=== PATIENT | male | born 1950 | race Hispanic/Latino ===

== ENCOUNTER 2019-04-30 18:11 | Emergency (ER) | payer MEDICARE, MEDICAID ==
[2019-04-30] MEDS ORDERED: methylPREDNISolone Sod Succ/PF 125 MG/2 ML VIAL ONE (18:30)
[2019-04-30 18:42] LABS: #Eosinphils 0.2 thou/uL (0.0-0.7); #Lymphocytes 1.8 thou/uL (1.20-3.40); #Monocytes 0.6 thou/uL (0.11-0.59); #Neutrophils 3.2 thou/uL (1.40-6.50); %Basophils 0.3 % (0.0-1.0); %Eosinophils 4.2 % (0.0-10.0); %Lymphocytes 31.2 % (21.0-51.0); %Monocytes 9.7 % (0.0-10.0); %Neutrophils 54.5 % (42.0-75.0); Hemoglobin 13.8 g/dL (14.0-18.0); Mean Corpuscular Hemoglobin 30.4 pg (27.0-31.0); Mean Corpuscular Volume 92.1 fL (78.0-98.0); Mean Platelet Volume 8.3 fL (7.4-10.4); Platelet Count 166 thou/uL (130-400); RBC Distribution Width 11.9 % (11.5-14.5); Red Blood Cell (RBC) Count 4.53 mill/uL (4.70-6.10); White Blood Cell (WBC) Count 5.8 thou/uL (4.8-10.8)
[2019-04-30 19:06] LABS: ALT (SGPT) 14 U/L (8-55); AST (SGOT) 13 U/L (5-34); Albumin 3.9 g/dL (3.4-4.8); Alkaline Phosphatase 79 U/L (40-110); Anion Gap 9 mmol/L (10-20); BUN (Urea Nitrogen) 13 mg/dL (8.4-25.7); Bilirubin, Total 0.7 mg/dL (0.2-1.2); Calc. Creatinine Clearance 0 mL/min (70-130); Calcium 8.8 mg/dL (7.8-10.44); Carbon Dioxide 28 mmol/L (23-31); Chloride 102 mmol/L (98-107); Estimated GFR-MDRD Greater than 90; Globulin 3.4 g/dL (2.4-3.5); Glucose 128 mg/dL (80-115); Potassium 3.4 mmol/L (3.5-5.1); Protein, Total 7.3 g/dL (5.8-8.1); Sodium 136 mmol/L (136-145)
--- NOTE | 2019-04-30 20:40 | RAD ---
PORTABLE AP CHEST X-RAY: 04/30/19 HISTORY: Dyspnea and wheezing. The patient states he has been sick for a couple of days. COMPARISON: 11/07/16. FINDINGS: There is elevation of the right hemidiaphragm, but there also appears to be pleural and parenchymal c hanges of the right lung base which may be related to associated small right pleural effusion and ate lectasis. Superimposed infiltrate right lung base cannot be entirely excluded. The left lung is clear . Right cardiac border is obscured. Pulmonary vasculature is within normal limits. No other interval change. IMPRESSION: 1. Elevation right hemidiaphragm with increased density right lung base probably attributable to atelectasis and possibly a small right pleural effusion. However, pneumonia at the right lung base c ould not be entirely excluded. Follow-up evaluation is recommended if clinically indicated. 2. Left lung is clear. POS: [facility]
[2019-04-30] MEDS ORDERED: Azithromycin 250 MG TAB ONE (21:57)
== END 2019-04-30 22:35 | disposition home or self-care (01) ==
LOC: ERS 18:11
DX: J98.01 Acute bronchospasm (principal); I25.2 Old myocardial infarction; G47.30 Sleep apnea, unspecified; E11.9 Type 2 diabetes mellitus without complications; E66.9 Obesity, unspecified; I10 Essential (primary) hypertension; Z79.899 Other long term (current) drug therapy; Z86.718 Personal history of other venous thrombosis and embolism; Z79.51 Long term (current) use of inhaled steroids
CPT/HCPCS: 36415; 71045; 80053; 83880; 85025; 93005; 96374; J2930

== ENCOUNTER 2020-12-13 21:12 | Inpatient (IN) | payer MEDICARE, MEDICAID ==
[2020-12-13] MEDS ORDERED: Vancomycin 1 GM/200 ML BAG ONE (21:33)
[2020-12-13] MEDS ORDERED: Cefepime 2 GM VIAL ONE (21:33)
[2020-12-13 21:44] LABS: Hemoglobin 12.2 g/dL (14.0-18.0); Mean Corpuscular Volume 93.4 fL (78.0-98.0); Mean Platelet Volume 9.5 fL (7.4-10.4); Platelet Count 128 thou/uL (130-400); RBC Distribution Width 12.5 % (11.5-14.5); Red Blood Cell (RBC) Count 4.21 mill/uL (4.70-6.10); White Blood Cell (WBC) Count 18.8 thou/uL (4.8-10.8)
[2020-12-13] MEDS ORDERED: Norepinephrine 8 MG/0.9% NS 250 ML ONE (21:49)
[2020-12-13 21:55] LABS: Bacteria/HPF 4+ HPF (None Seen); Bilirubin Negative (Negative); Blood, Urine 2+ (Negative); Clarity Extra Turbid (Clear); Glucose, Urine (Dipstick) Normal (Negative); Ketone, Urine Negative (Negative); Leukocyte 500 Leu/uL (Negative); Nitrite Negative (Negative); Protein, Urine (Dipstick) 200 mg/dL (Neg-Trace); RBC/HPF 21-50 HPF (0-3); Squamous Epithelial None Seen HPF (0-3); Urobilinogen Normal mg/dL (Less than 2); WBC/HPF Greater than 50 HPF (0-3)
[2020-12-13 22:27] LABS: ALT (SGPT) 14 U/L (8-55); AST (SGOT) 27 U/L (5-34); Alkaline Phosphatase 60 U/L (40-110); Anion Gap 20 mmol/L (10-20); BUN (Urea Nitrogen) 60 mg/dL (8.4-25.7); Band 1 % (5-11); Bilirubin, Total 1.6 mg/dL (0.2-1.2); CK (CPK) 172 U/L (30-200); Calc. Creatinine Clearance 0 mL/min (70-130); Calcium 6.9 mg/dL (7.8-10.44); Carbon Dioxide 27 mmol/L (23-31); Chloride 98 mmol/L (98-107); Globulin 3.6 g/dL (2.4-3.5); Glucose 139 mg/dL (83-110); Hypochromia SLIGHT = 6-15 cells (100X) (0-5/hpf); Lipase 15 U/L (8-78); Lymphocytes 2 % (21-51); MDiff Complete? YES; Monocytes 20 % (0-10); Neutrophil 77 % (42-75); Platelet Morphology Comment Appears Adequate; Potassium 2.8 mmol/L (3.5-5.1); Protein, Total 6.6 g/dL (5.8-8.1); Sodium 142 mmol/L (136-145)
[2020-12-13 23:10] LABS: CKMB 1.2 ng/mL (0-6.6)
[2020-12-13] MEDS ORDERED: Potassium Chloride 20 MEQ/100 ML PREMIX BAG ONE (23:20)
[2020-12-13] MEDS ORDERED: Potassium Chloride 40 MEQ in Premix Bag 1 BAG IVPB SCH (23:45)
[2020-12-14] MEDS ORDERED: Ondansetron ODT 4 MG TAB SL PRN (00:45)
[2020-12-14] MEDS ORDERED: Ondansetron PF 4 MG/2 ML Vial IVP PRN ×2 (00:45→01:34)
[2020-12-14 00:46] LABS: SARS-CoV-2 NAA Rapid Test Not Detected (NotDetected)
[2020-12-14 01:05] LABS: Lactic Acid 2.2 mmol/L (0.5-2.2)
[2020-12-14 01:28] LABS: Troponin I 0.243 ng/mL (< 0.028)
[2020-12-14] MEDS ORDERED: HumaLOG 300 UNITS/3 ML VIAL SC PRN (01:36)
[2020-12-14] MEDS ORDERED: Dextrose 5% in Water 1,000 ML IV PRN (01:36)
[2020-12-14] MEDS ORDERED: Dextrose 50% Abboject 50 ML SYRINGE SLOW IVP PRN (01:36)
[2020-12-14] MEDS: Sodium Chloride 0.9% 1,000 ML IV SCH ×2 (03:34→14:43)
[2020-12-14] MEDS ORDERED: Bacteriostatic Water 30 ML VIAL FS PRN (03:45)
[2020-12-14] MEDS ORDERED: Fleet Enema 133 ML BOT PR SCH (03:45)
[2020-12-14] MEDS ORDERED: methylPREDNISolone Sod Succ 40 MG VIAL IVP SCH (03:45)
[2020-12-14] MEDS ORDERED: methylPREDNISolone Sod Succ 40 MG VIAL ONE ×2 (04:18→21:17)
[2020-12-14] MEDS ORDERED: Norepinephrine 8 MG/0.9% NS 250 ML IVPB SCH (05:15)
[2020-12-14] MEDS ORDERED: Vancomycin HCl 750 MG in Sodium Chloride 0.9% 250 ML 250 ML IVPB SCH (05:30)
[2020-12-14 06:46] LABS: Troponin I 0.225 ng/mL (< 0.028)
[2020-12-14 06:46] LABS: ALT (SGPT) 21 U/L (8-55); AST (SGOT) 36 U/L (5-34); Albumin 2.9 g/dL (3.4-4.8); Alkaline Phosphatase 65 U/L (40-110); Anion Gap 19 mmol/L (10-20); BUN (Urea Nitrogen) 60 mg/dL (8.4-25.7); Bilirubin, Total 1.6 mg/dL (0.2-1.2); Calc. Creatinine Clearance 33 mL/min (70-130); Calcium 6.7 mg/dL (7.8-10.44); Carbon Dioxide 26 mmol/L (23-31); Chloride 103 mmol/L (98-107); Globulin 3.6 g/dL (2.4-3.5); Glucose 124 mg/dL (83-110); Magnesium 1.2 mg/dL (1.6-2.6); Potassium 3.2 mmol/L (3.5-5.1); Protein, Total 6.5 g/dL (5.8-8.1); Sodium 145 mmol/L (136-145)
[2020-12-14] MEDS ORDERED: Polyethylene Glycol 3350 17 GM Packet PO SCH (09:00)
[2020-12-14] MEDS ORDERED: Famotidine 20 MG TAB ONE (09:13)
[2020-12-14] MEDS ORDERED: Enoxaparin Sodium 30 MG/0.3 ML SYRINGE ONE (09:13)
[2020-12-14] MEDS: Enoxaparin Sodium 30 MG/0.3 ML SYRINGE SC SCH (09:27)
[2020-12-14] MEDS: Famotidine 20 MG TAB PO SCH (09:28)
[2020-12-14 11:21] LABS: Hemoglobin 13.1 g/dL (14.0-18.0); Mean Corpuscular HGB CONC 33.6 g/dL (32.0-36.0); Mean Corpuscular Hemoglobin 31.3 pg (27.0-31.0); Mean Corpuscular Volume 93.3 fL (78.0-98.0); Mean Platelet Volume 9.6 fL (7.4-10.4); Platelet Count 129 thou/uL (130-400); RBC Distribution Width 12.5 % (11.5-14.5); Red Blood Cell (RBC) Count 4.19 mill/uL (4.70-6.10); White Blood Cell (WBC) Count 23.1 thou/uL (4.8-10.8)
[2020-12-14 11:36] LABS: ALT (SGPT) 19 U/L (8-55); AST (SGOT) 28 U/L (5-34); Alkaline Phosphatase 62 U/L (40-110); Anion Gap 19 mmol/L (10-20); BUN (Urea Nitrogen) 56 mg/dL (8.4-25.7); Bilirubin, Total 1.5 mg/dL (0.2-1.2); Calc. Creatinine Clearance 36 mL/min (70-130); Calcium 7.3 mg/dL (7.8-10.44); Carbon Dioxide 27 mmol/L (23-31); Chloride 102 mmol/L (98-107); Globulin 3.7 g/dL (2.4-3.5); Glucose 149 mg/dL (83-110); Protein, Total 6.7 g/dL (5.8-8.1); Sodium 145 mmol/L (136-145)
[2020-12-14 11:39] LABS: Band 9 % (5-11); Lymphocytes 5 % (21-51); MDiff Complete? YES; Monocytes 2 % (0-10); Neutrophil 83 % (42-75); Platelet Morphology Comment Appears Decreased; RBC Morphology Normal; Reactive Lymphocytes 1 % (0-10)
[2020-12-14 11:49] LABS: Potassium 2.6 mmol/L (3.5-5.1)
[2020-12-14] MEDS ORDERED: Electrolyte Replacement Protocol 1 EACH FS SCH (13:15)
[2020-12-14] MEDS: methylPREDNISolone Sod Succ 40 MG VIAL IVP SCH ×2 (13:18→21:38)
[2020-12-14] MEDS ORDERED: Potassium Chloride 20 MEQ/100 ML PREMIX BAG ONE (15:26)
[2020-12-14] MEDS ORDERED: Potassium Chloride 20 MEQ TAB PO SCH (15:30)
[2020-12-14] MEDS ORDERED: Magnesium Sulfate 4 GM in Sodium Chloride 0.9% 250 ML 250 ML IVPB SCH (15:30)
[2020-12-14] MEDS ORDERED: Potassium Chloride 40 MEQ in Premix Bag 1 BAG IVPB SCH ×2 (15:45→17:45)
[2020-12-14] MEDS ORDERED: Cefepime 2 GM VIAL ONE (22:31)
[2020-12-14 22:56] LABS: Potassium 2.9 mmol/L (3.5-5.1)
[2020-12-14] MEDS ORDERED: Cefepime 2 GM in Sodium Chloride 0.9% 100 ML IVPB SCH (23:00)
[2020-12-14 23:59] LABS: Magnesium 2.1 mg/dL (1.6-2.6)
[2020-12-15] MEDS ORDERED: Potassium Chloride 20 MEQ/100 ML PREMIX BAG ONE (00:20)
[2020-12-15] MEDS ORDERED: Potassium Chloride 20 MEQ in Premix Bag 1 BAG IVPB SCH (00:30)
[2020-12-15] MEDS: Sodium Chloride 0.9% 1,000 ML IV SCH ×2 (05:23→17:21)
[2020-12-15] MEDS: methylPREDNISolone Sod Succ 40 MG VIAL IVP SCH ×3 (05:24→20:51)
[2020-12-15] MEDS ORDERED: Vancomycin 1 GM in Premix Bag 1 BAG IVPB SCH (05:30)
[2020-12-15 05:51] LABS: Hemoglobin 11.2 g/dL (14.0-18.0); Mean Corpuscular HGB CONC 33.1 g/dL (32.0-36.0); Mean Corpuscular Volume 93.8 fL (78.0-98.0); Mean Platelet Volume 9.5 fL (7.4-10.4); Platelet Count 124 thou/uL (130-400); RBC Distribution Width 12.6 % (11.5-14.5); Red Blood Cell (RBC) Count 3.61 mill/uL (4.70-6.10); White Blood Cell (WBC) Count 15.3 thou/uL (4.8-10.8)
[2020-12-15 05:58] LABS: ALT (SGPT) 18 U/L (8-55); AST (SGOT) 24 U/L (5-34); Albumin 2.7 g/dL (3.4-4.8); Alkaline Phosphatase 51 U/L (40-110); Anion Gap 18 mmol/L (10-20); BUN (Urea Nitrogen) 54 mg/dL (8.4-25.7); Bilirubin, Total 1.1 mg/dL (0.2-1.2); Calc. Creatinine Clearance 49 mL/min (70-130); Calcium 7.3 mg/dL (7.8-10.44); Carbon Dioxide 26 mmol/L (23-31); Chloride 106 mmol/L (98-107); Globulin 3.1 g/dL (2.4-3.5); Glucose 182 mg/dL (83-110); Magnesium 1.9 mg/dL (1.6-2.6); Protein, Total 5.8 g/dL (5.8-8.1); Sodium 147 mmol/L (136-145)
[2020-12-15 06:05] LABS: Potassium 2.7 mmol/L (3.5-5.1)
[2020-12-15 06:07] LABS: Band 10 % (5-11); Lymphocytes 4 % (21-51); MDiff Complete? YES; Monocytes 4 % (0-10); Neutrophil 82 % (42-75); Platelet Morphology Comment Appears Decreased
[2020-12-15] MEDS ORDERED: Magnesium 2 GM/50 ML 2 GM in Premix Bag 1 BAG IVPB SCH (06:30)
[2020-12-15] MEDS: Potassium Chloride 40 MEQ in Premix Bag 1 BAG IVPB SCH ×2 (06:49→10:14)
[2020-12-15] MEDS: HumaLOG 300 UNITS/3 ML VIAL SC PRN ×3 (07:02→16:55)
[2020-12-15] MEDS ORDERED: Polyethylene Glycol 3350 17 GM Packet PO PRN (08:30)
[2020-12-15] MEDS: Famotidine 20 MG TAB PO SCH (09:15)
[2020-12-15] MEDS: Enoxaparin Sodium 30 MG/0.3 ML SYRINGE SC SCH (09:15)
[2020-12-15 15:53] LABS: Potassium 3.3 mmol/L (3.5-5.1)
[2020-12-15] MEDS: Cefepime 2 GM in Sodium Chloride 0.9% 100 ML IVPB SCH (20:49)
[2020-12-16 04:56] LABS: ALT (SGPT) 17 U/L (8-55); AST (SGOT) 21 U/L (5-34); Albumin 2.6 g/dL (3.4-4.8); Alkaline Phosphatase 52 U/L (40-110); Anion Gap 10 mmol/L (10-20); BUN (Urea Nitrogen) 46 mg/dL (8.4-25.7); Bilirubin, Total 0.8 mg/dL (0.2-1.2); Calc. Creatinine Clearance 59 mL/min (70-130); Calcium 7.5 mg/dL (7.8-10.44); Carbon Dioxide 30 mmol/L (23-31); Chloride 103 mmol/L (98-107); Glucose 189 mg/dL (83-110); Magnesium 2.1 mg/dL (1.6-2.6); Protein, Total 5.6 g/dL (5.8-8.1); Sodium 140 mmol/L (136-145)
[2020-12-16] MEDS ORDERED: Potassium Chloride 40 MEQ in Premix Bag 1 BAG IVPB SCH (05:00)
[2020-12-16] MEDS: HumaLOG 300 UNITS/3 ML VIAL SC PRN ×2 (07:12→17:41)
[2020-12-16] MEDS: Sodium Chloride 0.9% 1,000 ML IV SCH ×2 (07:14→21:35)
[2020-12-16 07:19] VITALS: BMI 31.1
[2020-12-16] MEDS ORDERED: Melatonin 3 MG TAB PO PRN (07:30)
[2020-12-16] MEDS ORDERED: Ondansetron ODT 4 MG TAB PO PRN (07:30)
[2020-12-16] MEDS ORDERED: Calcium Carbonate 500 MG ChewTAB PO PRN (07:30)
[2020-12-16] MEDS ORDERED: Bisacodyl 5 MG TAB PO PRN (07:30)
[2020-12-16] MEDS ORDERED: Sodium Chloride 0.65% Nasal 44 ML BOT EA NARE PRN (07:30)
[2020-12-16] MEDS ORDERED: Cepastat Lozenges 1 LOZ PO PRN (07:30)
[2020-12-16] MEDS ORDERED: Hydrocerin (Eucerin) Cream 120 gm Jar TOP PRN (07:30)
[2020-12-16] MEDS ORDERED: Loperamide HCl 2 MG CAP PO PRN (07:30)
[2020-12-16] MEDS ORDERED: Senokot S 8.6-50 MG TAB PO PRN (07:30)
[2020-12-16] MEDS ORDERED: Loratadine 10 MG TAB PO PRN (07:30)
[2020-12-16] MEDS ORDERED: HYDROcodone/Acetaminophen 5/325 mg Tablet PO PRN (07:30)
[2020-12-16] MEDS ORDERED: GUAIFENESIN SF SOLN 200 MG/10 ML UDCUP PO PRN (07:30)
[2020-12-16] MEDS ORDERED: Artificial Tear Sol 15 ML BOT EA EYE PRN (07:30)
[2020-12-16] MEDS: Enoxaparin Sodium 30 MG/0.3 ML SYRINGE SC SCH (08:57)
[2020-12-16] MEDS: Famotidine 20 MG TAB PO SCH (08:57)
[2020-12-16] MEDS: methylPREDNISolone Sod Succ 40 MG VIAL IVP SCH (08:58)
[2020-12-16] MEDS: Cefepime 2 GM in Sodium Chloride 0.9% 100 ML IVPB SCH (20:46)
[2020-12-17] MEDS: Acetaminophen 325 MG TAB PO PRN (00:16)
[2020-12-17 04:36] LABS: Hemoglobin 9.7 g/dL (14.0-18.0); Mean Corpuscular HGB CONC 33.8 g/dL (32.0-36.0); Mean Corpuscular Hemoglobin 31.4 pg (27.0-31.0); Mean Corpuscular Volume 92.9 fL (78.0-98.0); Mean Platelet Volume 9.2 fL (7.4-10.4); Platelet Count 127 thou/uL (130-400); RBC Distribution Width 12.4 % (11.5-14.5); Red Blood Cell (RBC) Count 3.08 mill/uL (4.70-6.10); White Blood Cell (WBC) Count 11.1 thou/uL (4.8-10.8)
[2020-12-17 04:50] LABS: ALT (SGPT) 17 U/L (8-55); AST (SGOT) 18 U/L (5-34); Albumin 2.4 g/dL (3.4-4.8); Alkaline Phosphatase 45 U/L (40-110); Anion Gap 8 mmol/L (10-20); BUN (Urea Nitrogen) 41 mg/dL (8.4-25.7); Bilirubin, Total 0.7 mg/dL (0.2-1.2); Calc. Creatinine Clearance 84 mL/min (70-130); Calcium 7.6 mg/dL (7.8-10.44); Carbon Dioxide 28 mmol/L (23-31); Chloride 106 mmol/L (98-107); Globulin 2.6 g/dL (2.4-3.5); Glucose 128 mg/dL (83-110); Magnesium 1.9 mg/dL (1.6-2.6); Phosphorus 2.3 mg/dL (2.3-4.7); Potassium 3.4 mmol/L (3.5-5.1); Sodium 139 mmol/L (136-145)
[2020-12-17] MEDS ORDERED: Magnesium 2 GM/50 ML 2 GM in Premix Bag 1 BAG IVPB SCH (05:30)
[2020-12-17 06:30] LABS: Band 2 % (5-11); Lymphocytes 7 % (21-51); MDiff Complete? YES; Monocytes 2 % (0-10); Neutrophil 89 % (42-75)
[2020-12-17] MEDS ORDERED: Potassium Chloride 20 MEQ TAB PO SCH (06:45)
[2020-12-17] MEDS ORDERED: hydrALAZINE 20 MG/ML VIAL SLOW IVP PRN (07:26)
[2020-12-17] MEDS ORDERED: Melatonin 3 MG TAB PO PRN (07:27)
[2020-12-17] MEDS: Multivitamin W/ Minerals 1 TAB PO SCH (09:33)
[2020-12-17] MEDS: Midodrine HCl 5 MG TAB PO SCH ×3 (09:33→20:35)
[2020-12-17] MEDS: Ferrous Sulfate 325 MG TAB PO SCH (09:33)
[2020-12-17] MEDS: Enoxaparin Sodium 30 MG/0.3 ML SYRINGE SC SCH (09:34)
[2020-12-17] MEDS: Famotidine 20 MG TAB PO SCH (09:34)
[2020-12-17] MEDS: Sodium Chloride 0.9% 1,000 ML IV SCH (11:46)
[2020-12-17] MEDS: Cefepime 2 GM in Sodium Chloride 0.9% 100 ML IVPB SCH (20:35)
[2020-12-18] MEDS: Sodium Chloride 0.9% 1,000 ML IV SCH (05:06)
[2020-12-18 05:26] LABS: Hemoglobin 10.7 g/dL (14.0-18.0); Mean Corpuscular HGB CONC 33.7 g/dL (32.0-36.0); Mean Corpuscular Hemoglobin 31.7 pg (27.0-31.0); Mean Corpuscular Volume 94.1 fL (78.0-98.0); Mean Platelet Volume 8.4 fL (7.4-10.4); Platelet Count 152 thou/uL (130-400); RBC Distribution Width 12.7 % (11.5-14.5); Red Blood Cell (RBC) Count 3.37 mill/uL (4.70-6.10); White Blood Cell (WBC) Count 13.8 thou/uL (4.8-10.8)
[2020-12-18 05:47] LABS: Anion Gap 10 mmol/L (10-20); BUN (Urea Nitrogen) 36 mg/dL (8.4-25.7); Calc. Creatinine Clearance 93 mL/min (70-130); Calcium 7.8 mg/dL (7.8-10.44); Carbon Dioxide 27 mmol/L (23-31); Chloride 109 mmol/L (98-107); Glucose 98 mg/dL (83-110); Potassium 3.8 mmol/L (3.5-5.1); Sodium 142 mmol/L (136-145)
[2020-12-18] MEDS: Famotidine 20 MG TAB PO SCH (09:12)
[2020-12-18] MEDS: Enoxaparin Sodium 30 MG/0.3 ML SYRINGE SC SCH (09:12)
[2020-12-18] MEDS: Midodrine HCl 5 MG TAB PO SCH ×3 (09:12→21:40)
[2020-12-18] MEDS: Ferrous Sulfate 325 MG TAB PO SCH (09:12)
[2020-12-18] MEDS: Multivitamin W/ Minerals 1 TAB PO SCH (09:12)
[2020-12-18 09:21] LABS: Eosinophils 4 % (0-10); Lymphocytes 19 % (21-51); MDiff Complete? YES; Monocytes 4 % (0-10); Neutrophil 73 % (42-75); Platelet Morphology Comment Appears Adequate
[2020-12-18] MEDS: Acetaminophen 325 MG TAB PO PRN (09:27)
[2020-12-18] MEDS: Cefepime 2 GM in Sodium Chloride 0.9% 100 ML IVPB SCH (21:40)
[2020-12-19 07:56] LABS: Hemoglobin 11.1 g/dL (14.0-18.0); Mean Corpuscular HGB CONC 32.9 g/dL (32.0-36.0); Mean Corpuscular Hemoglobin 30.9 pg (27.0-31.0); Mean Platelet Volume 7.9 fL (7.4-10.4); Platelet Count 162 thou/uL (130-400); RBC Distribution Width 12.9 % (11.5-14.5); Red Blood Cell (RBC) Count 3.58 mill/uL (4.70-6.10); White Blood Cell (WBC) Count 18.6 thou/uL (4.8-10.8)
[2020-12-19 08:10] LABS: Anion Gap 12 mmol/L (10-20); BUN (Urea Nitrogen) 22 mg/dL (8.4-25.7); Calc. Creatinine Clearance 107 mL/min (70-130); Calcium 8.1 mg/dL (7.8-10.44); Carbon Dioxide 24 mmol/L (23-31); Chloride 111 mmol/L (98-107); Glucose 114 mg/dL (83-110); Potassium 3.6 mmol/L (3.5-5.1); Sodium 143 mmol/L (136-145)
[2020-12-19 08:29] LABS: MDiff Complete? YES
[2020-12-19 08:30] LABS: Band 2 % (5-11); Eosinophils 1 % (0-10); Lymphocytes 9 % (21-51); Metamyelocyte 3 % (0-0); Monocytes 5 % (0-10); Myelocyte 2 % (0-0); Neutrophil 78 % (42-75); Platelet Morphology Comment Appears Adequate; Polychromasia SLIGHT = 2-3 cells (100X) (0-2/hpf)
[2020-12-19] MEDS: Multivitamin W/ Minerals 1 TAB PO SCH (09:24)
[2020-12-19] MEDS: Midodrine HCl 5 MG TAB PO SCH ×3 (09:24→20:28)
[2020-12-19] MEDS: Famotidine 20 MG TAB PO SCH (09:25)
[2020-12-19] MEDS: Enoxaparin Sodium 30 MG/0.3 ML SYRINGE SC SCH (09:25)
[2020-12-19] MEDS: Ferrous Sulfate 325 MG TAB PO SCH (09:25)
[2020-12-19] MEDS ORDERED: Piperacillin/Tazobactam 3.375 GM in Sodium Chloride 0.9% 100 ML IVPB SCH (15:00)
[2020-12-19] MEDS: Dextrose 5 % And 0.9 % NaCl 1,000 ML IV SCH (16:58)
[2020-12-19] MEDS: Piperacillin/Tazobactam 3.375 GM in Sodium Chloride 0.9% 100 ML IVPB SCH (20:27)
[2020-12-19] MEDS ORDERED: Cefepime 2 GM in Sodium Chloride 0.9% 100 ML IVPB SCH (21:00)
[2020-12-20] MEDS: Piperacillin/Tazobactam 3.375 GM in Sodium Chloride 0.9% 100 ML IVPB SCH ×3 (03:51→19:08)
[2020-12-20] MEDS: Pantoprazole 40 MG VIAL IVP SCH (08:39)
[2020-12-20] MEDS: Dextrose 5 % And 0.9 % NaCl 1,000 ML IV SCH ×2 (08:39→19:37)
[2020-12-20] MEDS: Enoxaparin Sodium 30 MG/0.3 ML SYRINGE SC SCH (08:39)
[2020-12-20] MEDS: Midodrine HCl 5 MG TAB PO SCH ×3 (08:40→19:41)
[2020-12-20] MEDS: Ferrous Sulfate 325 MG TAB PO SCH (08:40)
[2020-12-20] MEDS: Multivitamin W/ Minerals 1 TAB PO SCH (08:40)
[2020-12-20 08:47] LABS: Hemoglobin 10.2 g/dL (14.0-18.0); Mean Corpuscular HGB CONC 32.4 g/dL (32.0-36.0); Mean Corpuscular Hemoglobin 30.5 pg (27.0-31.0); Mean Corpuscular Volume 94.1 fL (78.0-98.0); Platelet Count 187 thou/uL (130-400); Red Blood Cell (RBC) Count 3.35 mill/uL (4.70-6.10); White Blood Cell (WBC) Count 14.9 thou/uL (4.8-10.8)
[2020-12-20 09:00] LABS: Anion Gap 7 mmol/L (10-20); BUN (Urea Nitrogen) 15 mg/dL (8.4-25.7); Calc. Creatinine Clearance 111 mL/min (70-130); Calcium 7.8 mg/dL (7.8-10.44); Carbon Dioxide 30 mmol/L (23-31); Chloride 110 mmol/L (98-107); Glucose 105 mg/dL (83-110); Magnesium 1.6 mg/dL (1.6-2.6); Phosphorus 2.4 mg/dL (2.3-4.7); Potassium 3.2 mmol/L (3.5-5.1); Sodium 144 mmol/L (136-145)
[2020-12-20 09:15] LABS: Band 8 % (5-11); Eosinophils 1 % (0-10); Lymphocytes 11 % (21-51); MDiff Complete? YES; Metamyelocyte 1 % (0-0); Monocytes 2 % (0-10); Neutrophil 76 % (42-75); Platelet Morphology Comment Appears Adequate; Polychromasia SLIGHT = 2-3 cells (100X) (0-2/hpf); Reactive Lymphocytes 1 % (0-10)
[2020-12-20 14:33] LABS: Actual Bicarbonate (HCO3a) 27.4 mEq/L (22-28); Analyzer IN Cardio OR; CO2 Tension 32.8 mmHg (35.0-45.0); Calcium, Ionized (arterial) 1.08 mmol/L (1.12-1.30); Carboxyhemoglobin (COHb) 0.8 gm% (0.0-3.0); Potassium - ABG Lab 3.43 mmol/L (3.70-5.30); pH, Arterial 7.54 (7.35-7.45)
[2020-12-20 14:34] LABS: O2 Tension (PaO2), arterial 26.5 mmHg (> 70.0); Puncture Site LRA
[2020-12-20] MEDS: Acetaminophen 650 MG Suppository PR PRN (17:26)
[2020-12-20] MEDS: metroNIDAZOLE 500 MG in Premix Bag 1 BAG IVPB SCH (19:36)
[2020-12-21] MEDS: Piperacillin/Tazobactam 3.375 GM in Sodium Chloride 0.9% 100 ML IVPB SCH ×3 (04:15→18:36)
[2020-12-21] MEDS: metroNIDAZOLE 500 MG in Premix Bag 1 BAG IVPB SCH ×3 (04:15→20:44)
[2020-12-21] MEDS: Dextrose 5 % And 0.9 % NaCl 1,000 ML IV SCH (05:32)
[2020-12-21] MEDS: Lactated Ringer's 1,000 ML IV SCH ×2 (08:13→18:07)
[2020-12-21] MEDS: Pantoprazole 40 MG VIAL IVP SCH (08:21)
[2020-12-21] MEDS: Ferrous Sulfate 325 MG TAB PO SCH (08:30)
[2020-12-21] MEDS: Midodrine HCl 5 MG TAB PO SCH ×3 (08:30→21:00)
[2020-12-21] MEDS: Multivitamin W/ Minerals 1 TAB PO SCH (08:31)
[2020-12-21] MEDS: Enoxaparin Sodium 30 MG/0.3 ML SYRINGE SC SCH (08:33)
[2020-12-21 11:20] LABS: #Eosinphils 0.2 thou/uL (0.0-0.7); #Lymphocytes 0.9 thou/uL (1.20-3.40); #Monocytes 0.3 thou/uL (0.11-0.59); #Neutrophils 12.3 thou/uL (1.40-6.50); %Basophils 0.1 % (0.0-1.0); %Eosinophils 1.4 % (0.0-10.0); %Lymphocytes 6.7 % (21.0-51.0); %Monocytes 2.3 % (0.0-10.0); %Neutrophils 89.5 % (42.0-75.0); Hemoglobin 10.7 g/dL (14.0-18.0); Mean Corpuscular HGB CONC 32.6 g/dL (32.0-36.0); Mean Corpuscular Hemoglobin 30.6 pg (27.0-31.0); Mean Corpuscular Volume 93.8 fL (78.0-98.0); Mean Platelet Volume 7.8 fL (7.4-10.4); Platelet Count 190 thou/uL (130-400); RBC Distribution Width 12.8 % (11.5-14.5); Red Blood Cell (RBC) Count 3.52 mill/uL (4.70-6.10); White Blood Cell (WBC) Count 13.7 thou/uL (4.8-10.8)
[2020-12-21 11:43] LABS: Anion Gap 9 mmol/L (10-20); BUN (Urea Nitrogen) 12 mg/dL (8.4-25.7); Calc. Creatinine Clearance 113 mL/min (70-130); Carbon Dioxide 27 mmol/L (23-31); Chloride 109 mmol/L (98-107); Glucose 89 mg/dL (83-110); Potassium 3.3 mmol/L (3.5-5.1); Sodium 142 mmol/L (136-145)
[2020-12-21 13:48] LABS: SARS-CoV-2 PCR by NAA DETECTED (NotDetected)
[2020-12-21] MEDS: Acetaminophen 650 MG Suppository PR PRN (18:07)
[2020-12-22] MEDS: Albuterol 200 PUFF (6.7GM INHALER) INH SCH ×6 (02:34→23:00)
[2020-12-22] MEDS: Lactated Ringer's 1,000 ML IV SCH ×3 (02:34→20:38)
[2020-12-22] MEDS: Piperacillin/Tazobactam 3.375 GM in Sodium Chloride 0.9% 100 ML IVPB SCH ×3 (02:35→18:36)
[2020-12-22] MEDS: metroNIDAZOLE 500 MG in Premix Bag 1 BAG IVPB SCH ×3 (03:43→20:19)
[2020-12-22] MEDS: Midodrine HCl 5 MG TAB PO SCH ×3 (09:07→20:38)
[2020-12-22] MEDS: Enoxaparin Sodium 30 MG/0.3 ML SYRINGE SC SCH (09:07)
[2020-12-22] MEDS: Ferrous Sulfate 325 MG TAB PO SCH (09:07)
[2020-12-22] MEDS: Pantoprazole 40 MG VIAL IVP SCH (09:08)
[2020-12-22] MEDS: Multivitamin W/ Minerals 1 TAB PO SCH (09:08)
[2020-12-22 10:42] LABS: #Eosinphils 0.1 thou/uL (0.0-0.7); #Lymphocytes 1.3 thou/uL (1.20-3.40); #Monocytes 0.4 thou/uL (0.11-0.59); #Neutrophils 8.6 thou/uL (1.40-6.50); %Basophils 0.2 % (0.0-1.0); %Eosinophils 1.2 % (0.0-10.0); %Lymphocytes 12.2 % (21.0-51.0); %Monocytes 3.6 % (0.0-10.0); %Neutrophils 82.9 % (42.0-75.0); Hemoglobin 10.5 g/dL (14.0-18.0); Mean Corpuscular HGB CONC 32.6 g/dL (32.0-36.0); Mean Corpuscular Hemoglobin 30.7 pg (27.0-31.0); Mean Platelet Volume 7.6 fL (7.4-10.4); Platelet Count 184 thou/uL (130-400); RBC Distribution Width 12.6 % (11.5-14.5); Red Blood Cell (RBC) Count 3.41 mill/uL (4.70-6.10); White Blood Cell (WBC) Count 10.3 thou/uL (4.8-10.8)
[2020-12-22 11:20] LABS: ALT (SGPT) 16 U/L (8-55); AST (SGOT) 23 U/L (5-34); Albumin 2.5 g/dL (3.4-4.8); Alkaline Phosphatase 43 U/L (40-110); Anion Gap 12 mmol/L (10-20); BUN (Urea Nitrogen) 11 mg/dL (8.4-25.7); Bilirubin, Total 0.8 mg/dL (0.2-1.2); Calc. Creatinine Clearance 118 mL/min (70-130); Calcium 7.8 mg/dL (7.8-10.44); Carbon Dioxide 25 mmol/L (23-31); Chloride 107 mmol/L (98-107); Globulin 3.5 g/dL (2.4-3.5); Glucose 70 mg/dL (83-110); Lipase 17 U/L (8-78); Potassium 3.4 mmol/L (3.5-5.1); Sodium 141 mmol/L (136-145)
[2020-12-22] MEDS ORDERED: Iopamidol-370 76% 500 ML 1 ML ONE (13:24)
[2020-12-22] MEDS: Acetaminophen 650 MG Suppository PR PRN (16:33)
[2020-12-22] MEDS: Acetaminophen 325 MG TAB PO PRN (23:55)
[2020-12-23] MEDS: Lactated Ringer's 1,000 ML IV SCH ×3 (00:32→17:42)
[2020-12-23] MEDS: Albuterol 200 PUFF (6.7GM INHALER) INH SCH ×6 (03:39→18:34)
[2020-12-23] MEDS: Piperacillin/Tazobactam 3.375 GM in Sodium Chloride 0.9% 100 ML IVPB SCH ×3 (03:39→18:12)
[2020-12-23] MEDS: metroNIDAZOLE 500 MG in Premix Bag 1 BAG IVPB SCH ×3 (03:40→20:34)
[2020-12-23] MEDS: Multivitamin W/ Minerals 1 TAB PO SCH (08:11)
[2020-12-23] MEDS: Pantoprazole 40 MG VIAL IVP SCH (08:11)
[2020-12-23] MEDS: Enoxaparin Sodium 30 MG/0.3 ML SYRINGE SC SCH (08:11)
[2020-12-23] MEDS: Midodrine HCl 5 MG TAB PO SCH ×3 (08:11→20:35)
[2020-12-23] MEDS: Ferrous Sulfate 325 MG TAB PO SCH (08:11)
[2020-12-23] MEDS: Polyethylene Glycol 3350 17 GM Packet PO SCH (08:12)
[2020-12-23] MEDS: Morphine 2 MG/ML VIAL SLOW IVP PRN ×2 (14:10→17:37)
[2020-12-23] MEDS: Acetaminophen 325 MG TAB PO PRN (17:07)
[2020-12-24] MEDS: Albuterol 200 PUFF (6.7GM INHALER) INH SCH ×7 (00:08→21:52)
[2020-12-24] MEDS: Lactated Ringer's 1,000 ML IV SCH ×2 (01:25→18:48)
[2020-12-24] MEDS: Piperacillin/Tazobactam 3.375 GM in Sodium Chloride 0.9% 100 ML IVPB SCH (03:07)
[2020-12-24] MEDS: metroNIDAZOLE 500 MG in Premix Bag 1 BAG IVPB SCH ×3 (03:07→21:50)
[2020-12-24 06:35] LABS: #Eosinphils 0.1 thou/uL (0.0-0.7); #Lymphocytes 1.3 thou/uL (1.20-3.40); #Monocytes 0.2 thou/uL (0.11-0.59); #Neutrophils 7.9 thou/uL (1.40-6.50); %Basophils 0.1 % (0.0-1.0); %Eosinophils 0.7 % (0.0-10.0); %Lymphocytes 13.2 % (21.0-51.0); %Monocytes 1.9 % (0.0-10.0); Hemoglobin 9.8 g/dL (14.0-18.0); Mean Corpuscular HGB CONC 32.9 g/dL (32.0-36.0); Mean Corpuscular Hemoglobin 30.8 pg (27.0-31.0); Mean Corpuscular Volume 93.7 fL (78.0-98.0); Platelet Count 165 thou/uL (130-400); RBC Distribution Width 12.8 % (11.5-14.5); Red Blood Cell (RBC) Count 3.18 mill/uL (4.70-6.10); White Blood Cell (WBC) Count 9.4 thou/uL (4.8-10.8)
[2020-12-24 07:00] LABS: ALT (SGPT) 15 U/L (8-55); AST (SGOT) 27 U/L (5-34); Albumin 2.1 g/dL (3.4-4.8); Alkaline Phosphatase 40 U/L (40-110); Anion Gap 9 mmol/L (10-20); BUN (Urea Nitrogen) 8 mg/dL (8.4-25.7); Bilirubin, Total 0.4 mg/dL (0.2-1.2); Calc. Creatinine Clearance 119 mL/min (70-130); Calcium 7.2 mg/dL (7.8-10.44); Carbon Dioxide 27 mmol/L (23-31); Chloride 105 mmol/L (98-107); Globulin 3.3 g/dL (2.4-3.5); Glucose 81 mg/dL (83-110); Protein, Total 5.4 g/dL (5.8-8.1); Sodium 138 mmol/L (136-145)
[2020-12-24] MEDS: Multivitamin W/ Minerals 1 TAB PO SCH (08:45)
[2020-12-24] MEDS: Ferrous Sulfate 325 MG TAB PO SCH (08:46)
[2020-12-24] MEDS: Pantoprazole 40 MG VIAL IVP SCH (08:46)
[2020-12-24] MEDS: Polyethylene Glycol 3350 17 GM Packet PO SCH (08:47)
[2020-12-24] MEDS: Enoxaparin Sodium 30 MG/0.3 ML SYRINGE SC SCH (08:47)
[2020-12-24 11:38] LABS: Anion Gap 13 mmol/L (10-20); BUN (Urea Nitrogen) 9 mg/dL (8.4-25.7); Calc. Creatinine Clearance 119 mL/min (70-130); Calcium 7.3 mg/dL (7.8-10.44); Carbon Dioxide 24 mmol/L (23-31); Chloride 104 mmol/L (98-107); Glucose 95 mg/dL (83-110); Potassium 3.2 mmol/L (3.5-5.1); Sodium 138 mmol/L (136-145)
[2020-12-24] MEDS ORDERED: Furosemide 40 MG/4 ML VIAL SLOW IVP SCH (12:15)
[2020-12-24] MEDS ORDERED: Potassium Chloride 20 MEQ in Premix Bag 1 BAG IVPB SCH ×2 (13:00→14:00)
[2020-12-24] MEDS: Morphine 2 MG/ML VIAL SLOW IVP PRN (13:11)
[2020-12-24] MEDS: Potassium Bicarbonate/Cit Ac 20 MEQ TAB PO SCH ×2 (13:25→21:50)
[2020-12-24] MEDS ORDERED: Bacteriostatic Water 30 ML VIAL FS PRN (16:30)
[2020-12-24] MEDS: methylPREDNISolone Sod Succ 40 MG VIAL IVP SCH (21:52)
[2020-12-24] MEDS: Acetaminophen 325 MG TAB PO PRN (21:53)
[2020-12-25] MEDS: Albuterol 200 PUFF (6.7GM INHALER) INH SCH ×6 (02:13→23:24)
[2020-12-25] MEDS: Potassium Bicarbonate/Cit Ac 20 MEQ TAB PO SCH (02:13)
[2020-12-25] MEDS: metroNIDAZOLE 500 MG in Premix Bag 1 BAG IVPB SCH ×2 (04:59→12:06)
[2020-12-25] MEDS: methylPREDNISolone Sod Succ 40 MG VIAL IVP SCH (04:59)
[2020-12-25 06:13] LABS: #Lymphocytes 0.8 thou/uL (1.20-3.40); #Monocytes 0.2 thou/uL (0.11-0.59); #Neutrophils 9.3 thou/uL (1.40-6.50); %Basophils 0.1 % (0.0-1.0); %Eosinophils 0.1 % (0.0-10.0); %Lymphocytes 7.7 % (21.0-51.0); %Monocytes 1.6 % (0.0-10.0); %Neutrophils 90.6 % (42.0-75.0); Hemoglobin 10.2 g/dL (14.0-18.0); Mean Corpuscular HGB CONC 32.5 g/dL (32.0-36.0); Mean Corpuscular Hemoglobin 30.3 pg (27.0-31.0); Mean Corpuscular Volume 93.1 fL (78.0-98.0); Mean Platelet Volume 8.2 fL (7.4-10.4); Platelet Count 179 thou/uL (130-400); RBC Distribution Width 12.9 % (11.5-14.5); Red Blood Cell (RBC) Count 3.38 mill/uL (4.70-6.10); White Blood Cell (WBC) Count 10.2 thou/uL (4.8-10.8)
[2020-12-25 06:32] LABS: Anion Gap 10 mmol/L (10-20); BUN (Urea Nitrogen) 9 mg/dL (8.4-25.7); Calc. Creatinine Clearance 115 mL/min (70-130); Calcium 7.5 mg/dL (7.8-10.44); Carbon Dioxide 29 mmol/L (23-31); Chloride 102 mmol/L (98-107); Glucose 131 mg/dL (83-110); Potassium 4.4 mmol/L (3.5-5.1); Sodium 137 mmol/L (136-145)
[2020-12-25] MEDS: Polyethylene Glycol 3350 17 GM Packet PO SCH (09:39)
[2020-12-25] MEDS: Multivitamin W/ Minerals 1 TAB PO SCH (09:39)
[2020-12-25] MEDS: Ferrous Sulfate 325 MG TAB PO SCH (09:39)
[2020-12-25] MEDS: Pantoprazole 40 MG VIAL IVP SCH (09:39)
[2020-12-25] MEDS: Enoxaparin Sodium 30 MG/0.3 ML SYRINGE SC SCH (09:39)
[2020-12-25] MEDS: Amoxicillin/Potassium Clav 600 mg/5 ml Oral Suspension PO SCH (18:03)
[2020-12-26] MEDS: Albuterol 200 PUFF (6.7GM INHALER) INH SCH ×6 (03:13→22:55)
[2020-12-26] MEDS: Pantoprazole 40 MG VIAL IVP SCH (08:16)
[2020-12-26] MEDS: Amoxicillin/Potassium Clav 600 mg/5 ml Oral Suspension PO SCH ×2 (08:16→16:32)
[2020-12-26] MEDS: Enoxaparin Sodium 30 MG/0.3 ML SYRINGE SC SCH (08:16)
[2020-12-26] MEDS: Ferrous Sulfate 325 MG TAB PO SCH (08:16)
[2020-12-26] MEDS: Polyethylene Glycol 3350 17 GM Packet PO SCH (08:17)
[2020-12-26] MEDS: Multivitamin W/ Minerals 1 TAB PO SCH (08:17)
[2020-12-26] MEDS: predniSONE 20 MG TAB PO SCH (08:17)
[2020-12-26] MEDS: Acetaminophen 325 MG TAB PO PRN (15:18)
[2020-12-27] MEDS: Albuterol 200 PUFF (6.7GM INHALER) INH SCH ×6 (01:55→22:43)
[2020-12-27] MEDS: Polyethylene Glycol 3350 17 GM Packet PO SCH (08:37)
[2020-12-27] MEDS: Enoxaparin Sodium 30 MG/0.3 ML SYRINGE SC SCH (08:37)
[2020-12-27] MEDS: Ferrous Sulfate 325 MG TAB PO SCH (08:37)
[2020-12-27] MEDS: Multivitamin W/ Minerals 1 TAB PO SCH (08:38)
[2020-12-27] MEDS: predniSONE 20 MG TAB PO SCH (08:38)
[2020-12-27] MEDS: Pantoprazole 40 MG VIAL IVP SCH (08:38)
[2020-12-27] MEDS: Amoxicillin/Potassium Clav 600 mg/5 ml Oral Suspension PO SCH ×2 (09:54→16:36)
[2020-12-27 10:23] LABS: Hemoglobin 11.3 g/dL (14.0-18.0); Mean Corpuscular HGB CONC 32.5 g/dL (32.0-36.0); Mean Corpuscular Hemoglobin 30.4 pg (27.0-31.0); Mean Corpuscular Volume 93.5 fL (78.0-98.0); Mean Platelet Volume 8.3 fL (7.4-10.4); Platelet Count 212 thou/uL (130-400); Red Blood Cell (RBC) Count 3.73 mill/uL (4.70-6.10); White Blood Cell (WBC) Count 18.6 thou/uL (4.8-10.8)
[2020-12-27 10:40] LABS: Anion Gap 10 mmol/L (10-20); BUN (Urea Nitrogen) 10 mg/dL (8.4-25.7); Calc. Creatinine Clearance 118 mL/min (70-130); Calcium 7.7 mg/dL (7.8-10.44); Carbon Dioxide 29 mmol/L (23-31); Chloride 100 mmol/L (98-107); Glucose 127 mg/dL (83-110); Potassium 3.4 mmol/L (3.5-5.1); Sodium 136 mmol/L (136-145)
[2020-12-27 11:02] LABS: #Basophils 0.1 thou/uL (0.0-0.2); #Monocytes 0.4 thou/uL (0.11-0.59); #Neutrophils 17.2 thou/uL (1.40-6.50); %Basophils 0.5 % (0.0-1.0); %Lymphocytes 5.4 % (21.0-51.0); %Neutrophils 92.2 % (42.0-75.0); Band 5 % (5-11); Lymphocytes 7 % (21-51); MDiff Complete? YES; Neutrophil 87 % (42-75); Platelet Morphology Comment Appears Adequate; RBC Morphology Normal; Reactive Lymphocytes 1 % (0-10)
[2020-12-27] MEDS: Morphine 2 MG/ML VIAL SLOW IVP PRN ×2 (15:33→20:45)
[2020-12-28] MEDS: Morphine 2 MG/ML VIAL SLOW IVP PRN ×4 (02:07→22:00)
[2020-12-28] MEDS: Albuterol 200 PUFF (6.7GM INHALER) INH SCH ×6 (02:09→22:30)
[2020-12-28] MEDS: Ferrous Sulfate 325 MG TAB PO SCH (09:10)
[2020-12-28] MEDS: predniSONE 20 MG TAB PO SCH (09:12)
[2020-12-28] MEDS: Multivitamin W/ Minerals 1 TAB PO SCH (09:13)
[2020-12-28] MEDS: Pantoprazole 40 MG VIAL IVP SCH (09:13)
[2020-12-28] MEDS: Enoxaparin Sodium 30 MG/0.3 ML SYRINGE SC SCH (09:13)
[2020-12-28] MEDS: Amoxicillin/Potassium Clav 600 mg/5 ml Oral Suspension PO SCH ×2 (09:13→17:09)
[2020-12-28] MEDS: Polyethylene Glycol 3350 17 GM Packet PO SCH (09:14)
[2020-12-29] MEDS: Morphine 2 MG/ML VIAL SLOW IVP PRN ×2 (02:00→06:14)
[2020-12-29] MEDS: Albuterol 200 PUFF (6.7GM INHALER) INH SCH ×3 (02:15→11:35)
[2020-12-29 08:02] VITALS: BP 127/79; TEMP 98.4
[2020-12-29] MEDS: predniSONE 20 MG TAB PO SCH (11:34)
[2020-12-29] MEDS: Ferrous Sulfate 325 MG TAB PO SCH (11:34)
[2020-12-29] MEDS: Amoxicillin/Potassium Clav 600 mg/5 ml Oral Suspension PO SCH (11:34)
[2020-12-29] MEDS: Multivitamin W/ Minerals 1 TAB PO SCH (11:35)
[2020-12-29] MEDS: Polyethylene Glycol 3350 17 GM Packet PO SCH (11:35)
[2020-12-29] MEDS: Enoxaparin Sodium 30 MG/0.3 ML SYRINGE SC SCH (12:20)
[2020-12-29] MEDS: Pantoprazole 40 MG VIAL IVP SCH (12:21)
== END 2020-12-29 11:51 | disposition hospice, inpatient (51) | DRG 871 ==
LOC: ERS 21:12 → ERHOLD 23:46 → CCU 12-15 04:11 → 2NO 12-16 16:28 → ONC 12-19 12:39 → T4-B 12-21 17:41
PROVIDERS: ADMIT Internal Medicine; ATTEND Internal Medicine
PROC: 06HY33Z Insertion of Infusion Device into Lower Vein, Percutaneous Approach (ICD-10-PCS; principal; 2020-12-13)
PROC: 3E033XZ Introduction of Vasopressor into Peripheral Vein, Percutaneous Approach (ICD-10-PCS; 2020-12-13)
DX: A41.89 Other specified sepsis (principal); R65.21 Severe sepsis with septic shock; G93.41 Metabolic encephalopathy; Z66 Do not resuscitate; I21.A1 Myocardial infarction type 2; J69.0 Pneumonitis due to inhalation of food and vomit; U07.1 COVID-19; J12.82 Pneumonia due to coronavirus disease 2019; J96.01 Acute respiratory failure with hypoxia; I63.9 Cerebral infarction, unspecified; G93.6 Cerebral edema; I69.351 Hemiplegia and hemiparesis following cerebral infarction affecting right dominant side; I50.32 Chronic diastolic (congestive) heart failure; N17.9 Acute kidney failure, unspecified; J44.1 Chronic obstructive pulmonary disease with (acute) exacerbation; N39.0 Urinary tract infection, site not specified; I11.0 Hypertensive heart disease with heart failure; I25.10 Atherosclerotic heart disease of native coronary artery without angina pectoris; J44.9 Chronic obstructive pulmonary disease, unspecified; D69.6 Thrombocytopenia, unspecified; K59.00 Constipation, unspecified; E87.6 Hypokalemia; G47.33 Obstructive sleep apnea (adult) (pediatric); E88.09 Other disorders of plasma-protein metabolism, not elsewhere classified; E66.9 Obesity, unspecified; E11.51 Type 2 diabetes mellitus with diabetic peripheral angiopathy without gangrene; K56.41 Fecal impaction; Z86.718 Personal history of other venous thrombosis and embolism; Z79.82 Long term (current) use of aspirin; Z79.899 Other long term (current) drug therapy; Z98.890 Other specified postprocedural states; Z68.31 Body mass index [BMI] 31.0-31.9, adult
CPT/HCPCS: 36415; 36416; 36556; 36600; 51701; 70450; 71045; 74176; 74177; 80048; 80053; 81003; 81015; 82550; 82553; 82805; 83605; 83690; 83735; 83880; 84100; 84484; 85025; 87040; 87077; 87086; 87186; 93005; 93306; 94640; 94760; 96365; 96367; 96374; 96375; C9113; J0360; J0692; J1650; J1815; J1940; J1956; J2270; J2405; J2543; J2920; J3370; J3475; J3480; J3490; J7042; J7050; J7120; J7512; J7620; Q9967; U0002; U0003; U0005

== ENCOUNTER 2020-12-29 12:09 | Inpatient (IN) | payer OTHER ==
[2020-12-29] MEDS ORDERED: Lorazepam 2 MG/ML VIAL SLOW IVP PRN (12:52)
[2020-12-29] MEDS ORDERED: Haloperidol Lactate 5 MG/ML VIAL SLOW IVP PRN (12:53)
[2020-12-29] MEDS ORDERED: Scopolamine 1.5 mg/72 hour Patch TOP PRN (12:57)
[2020-12-29] MEDS ORDERED: Ondansetron PF 4 MG/2 ML Vial IVP PRN (12:57)
[2020-12-29] MEDS: Morphine 2 MG/ML VIAL SLOW IVP PRN ×2 (13:07→13:20)
[2020-12-29] MEDS: Morphine 4 MG/ML VIAL SLOW IVP SCH ×5 (14:53→22:08)
[2020-12-29] MEDS: Lorazepam 2 MG/ML VIAL SLOW IVP SCH ×3 (15:21→21:53)
[2020-12-30] MEDS: Morphine 4 MG/ML VIAL SLOW IVP SCH ×6 (00:10→10:14)
[2020-12-30] MEDS: Lorazepam 2 MG/ML VIAL SLOW IVP SCH ×3 (01:20→08:58)
[2020-12-30 07:58] VITALS: BP 49/30; TEMP 97.5
[2020-12-30] MEDS ORDERED: Bisacodyl 10 MG SUPP PR SCH (09:00)
== END 2020-12-30 11:00 | disposition expired | DRG 951 ==
LOC: T4-B 12:09
PROVIDERS: ADMIT Family Medicine; ATTEND Family Medicine
DX: Z51.5 Encounter for palliative care (principal)
CPT/HCPCS: J2060; J2270